=== PATIENT | female | born 1970 | race Caucasian/White ===

== ENCOUNTER 2019-09-19 12:09 | Emergency (ER) | payer MEDICAID, SELFPAY ==
[~2019-09-19] VITALS: Ht 160 cm; Wt 71.2 kg
[2019-09-19 12:31] VITALS: BP 108/73
--- NOTE | 2019-09-19 13:20 | NUR ---
COVID AND STREP SWAB COLLECTED
--- NOTE | 2019-09-19 13:40 | NUR ---
SEEN BY KEVIN LYN IN THE TENT. NO NURSING INTERVENTION DONE
--- NOTE | 2019-09-19 13:40 | NUR ---
Patient discharged with v/s stable. Written and verbal after care instructions given and explained. Patient alert, oriented and verbalized understanding of instructions. Ambulatory with steady gait. All questions addressed prior to discharge. ID band removed. Patient advised to follow up with PMD. Rx of VISTARIL & TYLENOL given. Patient educated on indication of medication including possible reaction and side effects. Opportunity to ask questions provided and answered.
--- NOTE | 2019-09-22 10:36 | NUR ---
Covid-19 result shows not detected. Copy of results given to Marilee at infection control
== END 2019-09-19 13:40 | disposition home or self-care (01) ==
LOC: MED 12:09
DX: J02.9 Acute pharyngitis, unspecified (principal); F41.9 Anxiety disorder, unspecified; J45.909 Unspecified asthma, uncomplicated; Z20.828 Contact with and (suspected) exposure to other viral communicable diseases
CPT/HCPCS: 87081; 99283; U0003

== ENCOUNTER 2020-11-20 15:54 | Emergency (ER) | payer MEDICAID, SELFPAY ==
[~2020-11-20] VITALS: Ht 160 cm; Wt 77.1 kg
[2020-11-20 16:10] VITALS: BP 149/94
[2020-11-20] MEDS ORDERED: ACETAMINOPHEN EXTRA STRENGTH 500 MG TAB PO ONE (17:20)
[2020-11-20] MEDS ORDERED: diphenhydrAMINE 50 MG CAP PO ONE (17:20)
[2020-11-20] MEDS ORDERED: NACL 0.9% 1,000 ML IV ONE (17:20)
[2020-11-20] MEDS ORDERED: PROCHLORPERAZINE 10 MG/2 ML VIAL IVP ONE (17:20)
--- NOTE | 2020-11-20 17:24 | NUR ---
50/F PRESENTS TO ED WITH C/O HEADACHE, ANXIETY AND LEFT ARM NUMBNESS SINCE 10:30 THIS MORNING. PATIENT DENIES BLURRED VISION, DIZZINESS OR CHANGE IN SPEECH. REPORTS 9/10 THROBBING HEADACHE, NONRADIATING WITH NO RELIEF, ALSO C/O INTERMITTENT EPISODES OF NAUSEA. DENIES TAKING ANYTHING AT HOME FOR PAIN. DENIES CP, SOB, V/D, FEVER OR CHILLS.
[2020-11-20 18:19] LABS: BASOPHILS # (AUTO) 0.1 K/uL (0.00-0.22); BASOPHILS % (AUTO) 1.1 % (0.0-2.0); EOSINOPHILS % (AUTO) 0.4 % (0.0-4.0); HEMATOCRIT 39.1 % (36-48); LYMPHOCYTES # (AUTO) 1.4 K/uL (2.5-16.5); LYMPHOCYTES % (AUTO) 17.9 % (20.5-51.1); MEAN CORPUSCULAR HEMOGLOBIN 30 pg (27-31); MEAN CORPUSCULAR HGB CONC 33 g/dL (33-37); MONOCYTES # (AUTO) 0.4 K/uL (0.8-1.0); MONOCYTES % (AUTO) 4.6 % (1.7-9.3); NEUTROPHILS # (AUTO) 6.1 K/uL (1.8-7.7); PLATELET COUNT (AUTO) 306 K/uL (140-450); RED BLOOD CELL COUNT(AUTO) 4.34 MIL/uL (4.20-5.40); RED CELL DISTRIBUTION WIDTH 13.9 % (11.6-13.7)
--- NOTE | 2020-11-20 18:25 | NUR ---
PATIENT TAKEN TO CT VIA BRITT[facility]
[2020-11-20 18:34] LABS: ALBUMIN 3.7 g/dL (3.4-5.0); ANION GAP 13.8 (8-16); CARBON DIOXIDE 24.9 mmol/L (21-32); CREATININE 0.6 mg/dL (0.6-1.3); POTASSIUM 3.7 mmol/L (3.5-5.1); TOTAL BILIRUBIN 0.2 mg/dL (0.0-1.0)
--- NOTE | 2020-11-20 18:42 | NUR ---
EMT BEDSIDE FOR EKG
[2020-11-20] MEDS ORDERED: ONDA4TAB PO (19:14)
[2020-11-20] MEDS ORDERED: IBUP-2213 PO (19:14)
--- NOTE | 2020-11-20 19:17 | NUR ---
Pt report given to JOAN PHAN. Transfer of care at this time.
[2020-11-20 19:25] VITALS: BP 127/65
--- NOTE | 2020-11-20 19:25 | NUR ---
Patient discharged with v/s stable. Written and verbal after care instructions given and explained. Patient alert, oriented and verbalized understanding of instructions. Ambulatory with steady gait. All questions addressed prior to discharge. ID band removed. Patient advised to follow up with PMD. Rx of ZOFRAN AND IBUPROFEN given. Patient educated on indication of medication including possible reaction and side effects. Opportunity to ask questions provided and answered.
== END 2020-11-20 19:25 | disposition home or self-care (01) ==
LOC: MED 15:54
DX: J91.8 Pleural effusion in other conditions classified elsewhere (principal); J44.9 Chronic obstructive pulmonary disease, unspecified; F32.9 Major depressive disorder, single episode, unspecified; F41.9 Anxiety disorder, unspecified
CPT/HCPCS: 36415; 70450; 71045; 80053; 84484; 85025; 93005; 96361; 96374; 99285; J0780; J7030; Q0163

== ENCOUNTER 2023-10-14 05:05 | Emergency (ER) | payer MEDICAID, OTHER ==
[~2023-10-14] VITALS: Ht 160 cm; Wt 59.0 kg
[~2023-10-14 05:05] MED LIST: IBUP-2213 PO; ONDA4TAB PO
[2023-10-14 05:24] VITALS: BP 111/70; PULSE 73; RESP 16; TEMP 97.4; O2SAT 99
[2023-10-14] MEDS ORDERED: METOCLOPRAMIDE 10 MG/2 ML INJ VIAL ONE (05:41)
[2023-10-14] MEDS ORDERED: ACET-8905 PO ×2 (05:45→06:17)
[2023-10-14] MEDS ORDERED: ONDA8TAB87 PO (05:45)
[2023-10-14] MEDS: NACL 0.9% 1,000 ML IV ONE (05:47)
[2023-10-14] MEDS: METOCLOPRAMIDE 10 MG/2 ML INJ VIAL IVP ONE (05:47)
[2023-10-14] MEDS: diphenhydrAMINE 50 MG/ML VIAL IVP ONE (05:48)
[2023-10-14] MEDS ORDERED: ONDA-188 PO (06:17)
[2023-10-14 06:18] VITALS: BP 111/70; PULSE 73; RESP 16; TEMP 97.4; O2SAT 99
== END 2023-10-14 06:18 | disposition home or self-care (01) ==
LOC: MED 05:05
DX: R51.9 Headache, unspecified (principal); M54.2 Cervicalgia; J45.909 Unspecified asthma, uncomplicated; Z79.1 Long term (current) use of non-steroidal anti-inflammatories (NSAID); Z79.899 Other long term (current) drug therapy
CPT/HCPCS: 96361; 96374; 96375; 99284; J1200; J2765; J7030

== ENCOUNTER 2023-11-30 10:45 | Emergency (ER) | payer OTHER ==
[~2023-11-30] VITALS: Ht 160 cm; Wt 64.4 kg
[~2023-11-30 10:45] MED LIST changes: +ACET-8905 PO; +ONDA-188 PO
[2023-11-30 10:54] VITALS: BP 105/61; PULSE 76; RESP 15; TEMP 98.6; O2SAT 99
[2023-11-30] MEDS ORDERED: DIPH25TA53 PO (11:17)
[2023-11-30] MEDS ORDERED: PRED20TA5 PO (11:17)
== END 2023-11-30 11:38 | disposition home or self-care (01) ==
LOC: MED 10:45
DX: R21 Rash and other nonspecific skin eruption (principal); Z79.899 Other long term (current) drug therapy
CPT/HCPCS: 99283